=== PATIENT | female | born 1975 | race Caucasian/White ===

== ENCOUNTER 2019-07-18 16:52 | Inpatient (IN) | payer MEDICAID ==
[~2019-07-18] VITALS: Ht 165.1 cm; Wt 57.6 kg
[~2019-07-18 16:52] MED LIST: CLOZ100 PO; CLOZ100T PO; DIVA-78 PO
[2019-07-18 17:25] LABS: BASOPHILS % (AUTO) 0.3 % (0.0-2.0); EOSINOPHILS % (AUTO) 0.9 % (1.0-6.0); HEMATOCRIT 41.4 % (36-46); LYMPHOCYTES # (AUTO) 2.4 K/uL (1.0-4.8); LYMPHOCYTES % (AUTO) 30.9 % (22.0-44.0); MEAN CORPUSCULAR HEMOGLOBIN 30.2 pg (26.0-34.0); MEAN CORPUSCULAR HGB CONC 33.8 G/dL (31.0-37.0); MEAN CORPUSCULAR VOLUME 90 fL (80-100); MONOCYTES # (AUTO) 0.6 K/uL (0.1-1.0); MONOCYTES % (AUTO) 7.7 % (2.0-9.0); NEUTROPHILS # (AUTO) 4.6 K/uL (1.8-7.7); NEUTROPHILS % (AUTO) 60.2 % (40.0-70.0); PLATELET COUNT (AUTO) 314 K/uL (150-450); RED BLOOD CELL COUNT(AUTO) 4.62 MIL/uL (4.00-5.20); RED CELL DISTRIBUTION WIDTH 14.4 % (11.5-14.5)
[2019-07-18 17:37] LABS: ANION GAP 8 mmol/L (8-16); CALCIUM, TOTAL 9.2 mg/dL (8.8-10.5); CARBON DIOXIDE 27 mmol/L (22-29); CHLORIDE 103 mmol/L (98-107); CREATININE 0.76 mg/dL (0.60-1.30); GLOMERULAR FILTR. RATE CALC > 60 mL/min (>60); GLUCOSE,RANDOM 102 mg/dL (70-110); POTASSIUM 3.6 mmol/L (3.5-5.1); SODIUM SERUM 138 mmol/L (136-145); UREA NITROGEN, BLOOD 10 mg/dL (7-18)
[2019-07-18 17:43] LABS: ALANINE AMINOTRANSFERASE 15 U/L (12-78); ALBUMIN 3.5 g/dL (3.4-5.0); ALKALINE PHOSPHATASE 86 U/L (46-116); ASPARTATE AMINOTRANSFERASE 14 U/L (15-37); BILIRUBIN,TOTAL 0.5 mg/dL (0.1-1.0); TOTAL PROTEIN, SERUM 6.6 g/dL (6.4-8.2)
[2019-07-18 18:04] LABS: CREATINE KINASE, TOTAL ONLY 86 U/L (26-192); VALPROIC ACID < 3 mcg/mL (50-100)
[2019-07-18] MEDS ORDERED: ZOLPIDEM TARTRATE 10 MG TABLET PO PRN (18:45)
[2019-07-18] MEDS ORDERED: GuaiFENesin/D-METHORPHAN [SUGAR-FREE] 200-20MG/10 ML SYRUP UDCUP PO PRN (23:00)
[2019-07-18] MEDS ORDERED: IBUPROFEN 400 MG TABLET PO PRN (23:00)
[2019-07-18] MEDS ORDERED: CloNIDine HCL 0.1 MG TABLET PO PRN (23:00)
[2019-07-18] MEDS ORDERED: PETROLATUM,WHITE 28 GM JELLY TP PRN (23:00)
[2019-07-18] MEDS ORDERED: ONDANSETRON HCL 4 MG TABLET PO PRN (23:00)
[2019-07-18] MEDS ORDERED: NICOTINE 14 MG/24 HOUR PATCH TD PRN (23:00)
[2019-07-18] MEDS ORDERED: ACETAMINOPHEN 325 MG TABLET PO PRN (23:00)
[2019-07-18] MEDS ORDERED: ALBUTEROL SULFATE HFA 90 MCG/PUFF 8 GM INHALER IH PRN (23:00)
[2019-07-18] MEDS ORDERED: DOCUSATE SODIUM 100 MG CAPSULE PO PRN (23:00)
[2019-07-18] MEDS ORDERED: MAGNESIUM HYDROXIDE SUSPENSION 30 ML UDCUP PO PRN (23:00)
[2019-07-18] MEDS ORDERED: MAG HYDROX/AL HYDROX/SIMETH ES 30 ML SUSPENSION UDCUP PO PRN (23:00)
[2019-07-18] MEDS ORDERED: LOPERAMIDE HCL 2 MG CAPSULE PO PRN (23:00)
[2019-07-19 08:09] VITALS: BP 120/73
[2019-07-19 16:05] VITALS: BP 100/59
[2019-07-19] MEDS: OLANZapine 5 MG TABLET PO SCH (16:20)
[2019-07-19] MEDS: LORazepam 2 MG TABLET PO PRN (16:50)
[2019-07-20] MEDS: OLANZapine 5 MG TABLET PO SCH ×2 (08:42→16:15)
[2019-07-20 16:04] VITALS: BP 128/73
[2019-07-20] MEDS: LORazepam 2 MG TABLET PO PRN (16:15)
[2019-07-21 06:35] VITALS: BP 139/75
[2019-07-21 08:05] VITALS: BP 130/70
[2019-07-21] MEDS: LORazepam 2 MG TABLET PO PRN ×2 (08:56→14:25)
[2019-07-21] MEDS: OLANZapine 10 MG TABLET PO SCH ×2 (08:56→16:17)
[2019-07-21 16:05] VITALS: BP 128/63
[2019-07-21] MEDS: HALOPERIDOL 5 MG TABLET PO PRN (16:42)
[2019-07-22 08:33] VITALS: BP 116/73
[2019-07-22] MEDS: OLANZapine 10 MG TABLET PO SCH ×2 (09:00→16:07)
[2019-07-22] MEDS: LITHIUM CARBONATE 300 MG CAPSULE PO SCH ×2 (11:00→16:07)
[2019-07-22] MEDS: LORazepam 2 MG TABLET PO PRN ×2 (14:49→19:32)
[2019-07-22 16:05] VITALS: BP 114/72
[2019-07-22] MEDS: HALOPERIDOL 5 MG TABLET PO PRN (17:02)
[2019-07-23] MEDS: LORazepam 2 MG TABLET PO PRN ×2 (08:46→20:10)
[2019-07-23] MEDS: LITHIUM CARBONATE 300 MG CAPSULE PO SCH ×2 (08:47→15:40)
[2019-07-23] MEDS: OLANZapine 10 MG TABLET PO SCH ×2 (08:47→15:40)
[2019-07-24] MEDS: LITHIUM CARBONATE 300 MG CAPSULE PO SCH ×2 (08:36→16:27)
[2019-07-24] MEDS: OLANZapine 10 MG TABLET PO SCH ×2 (08:36→16:27)
[2019-07-24] MEDS: LORazepam 2 MG TABLET PO PRN (16:27)
[2019-07-25] MEDS: OLANZapine 10 MG TABLET PO SCH ×2 (08:28→16:00)
[2019-07-25] MEDS: LITHIUM CARBONATE 300 MG CAPSULE PO SCH ×2 (08:28→16:00)
[2019-07-25 08:48] VITALS: BP 130/83
[2019-07-25 16:04] VITALS: BP 114/80
[2019-07-26 06:26] VITALS: BP 125/85
[2019-07-26] MEDS: LORazepam 2 MG TABLET PO PRN (09:13)
[2019-07-26] MEDS: LITHIUM CARBONATE 300 MG CAPSULE PO SCH (09:13)
[2019-07-26] MEDS: OLANZapine 10 MG TABLET PO SCH ×2 (09:13→16:01)
[2019-07-26] MEDS ORDERED: OLAN10TA3 PO (15:13)
[2019-07-26 16:26] VITALS: BP 123/84
== END 2019-07-26 17:00 | disposition home or self-care (01) | DRG 750 ==
LOC: EMS 16:55 → B3A 20:00
PROVIDERS: ADMIT Psychiatry & Neurology Psychiatry; ATTEND Psychiatry & Neurology Psychiatry
DX: F20.9 Schizophrenia, unspecified (principal); Z59.0 Homelessness; F10.10 Alcohol abuse, uncomplicated; F15.90 Other stimulant use, unspecified, uncomplicated; F17.200 Nicotine dependence, unspecified, uncomplicated; F31.9 Bipolar disorder, unspecified; F19.10 Other psychoactive substance abuse, uncomplicated; Z88.0 Allergy status to penicillin; Z88.6 Allergy status to analgesic agent; Z88.8 Allergy status to other drugs, medicaments and biological substances; Z71.41 Alcohol abuse counseling and surveillance of alcoholic; Z71.51 Drug abuse counseling and surveillance of drug abuser; Z71.6 Tobacco abuse counseling
CPT/HCPCS: 80159; G0480